=== PATIENT | male | born 1975 | race Caucasian/White ===

== ENCOUNTER 2022-04-24 07:59 | Day surgery (SDC) | payer OTHER ==
[~2022-04-24] VITALS: Ht 157.5 cm; Wt 67.1 kg
[2022-04-24] MEDS ORDERED: diphenhydrAMINE 50 MG/ML VIAL ONE (09:36)
[2022-04-24] MEDS ORDERED: MIDAZOLAM 2 MG/2 ML VIAL ONE ×2 (09:36)
[2022-04-24] MEDS ORDERED: fentaNYL citrate 0.05 MG/ML VIAL ONE (09:36)
[2022-04-24] MEDS ORDERED: diphenhydrAMINE 50 MG/ML VIAL IVP ONE (10:30)
[2022-04-24] MEDS ORDERED: MIDAZOLAM 2 MG/2 ML VIAL IVP ONE (10:30)
[2022-04-24] MEDS ORDERED: fentaNYL citrate 0.05 MG/ML VIAL IVP ONE (10:30)
== END 2022-04-24 11:20 | disposition home or self-care (01) ==
LOC: MDS 07:59 → MMU 08:00 → MDS 11:20
PROVIDERS: ATTEND Internal Medicine Gastroenterology
DX: Z12.11 Encounter for screening for malignant neoplasm of colon (principal); K63.5 Polyp of colon; K52.9 Noninfective gastroenteritis and colitis, unspecified; K29.70 Gastritis, unspecified, without bleeding; R63.4 Abnormal weight loss; E78.5 Hyperlipidemia, unspecified; E11.9 Type 2 diabetes mellitus without complications; Z79.84 Long term (current) use of oral hypoglycemic drugs; Z79.899 Other long term (current) drug therapy
CPT/HCPCS: 43239; 45380; 45385; 87426; J1200; J2250; J3010; 88305; 88312; 88313; 88342